=== PATIENT | female | born 1990 | race Caucasian/White ===

== ENCOUNTER → 2018-02-16 | Outpatient (REF) | payer BC | LOC: M SFHCWAGY 13:06 | DX: Z12.4 Encounter for screening for malignant neoplasm of cervix (principal) | CPT/HCPCS: G0123 ==

== ENCOUNTER → 2018-08-18 | Outpatient (REF) | payer BC | LOC: M LAB REF 08:36 | PROVIDERS: ATTEND Physician Assistant | DX: J02.9 Acute pharyngitis, unspecified (principal) ==

== ENCOUNTER → 2019-02-15 | Outpatient (REF) | payer BC | LOC: M SFHCWAGY 09:34 | PROVIDERS: ATTEND Family Medicine | DX: Z12.4 Encounter for screening for malignant neoplasm of cervix (principal) ==

== ENCOUNTER → 2021-03-09 | Outpatient (REF) | payer BC | LOC: M SFHCWAGY 17:18 | PROVIDERS: ATTEND Nurse Practitioner Women's Health | DX: Z12.4 Encounter for screening for malignant neoplasm of cervix (principal) ==

== ENCOUNTER → 2022-06-27 | Outpatient (REF) | payer BC | LOC: M SFHCWAGY 10:31 | PROVIDERS: ATTEND Advanced Practice Midwife | DX: Z12.4 Encounter for screening for malignant neoplasm of cervix (principal); Z77.9 Other contact with and (suspected) exposures hazardous to health | CPT/HCPCS: 87624; G0123 ==

== ENCOUNTER → 2023-02-14 | Outpatient (CLI) | payer BC ==
[2023-02-14 18:07] LABS: HEMATOCRIT 37.7 % (36.0-47.0); HEMOGLOBIN 12.4 g/dl (12.0-15.5); MEAN CORPUSCULAR HEMOGLOBIN 29.8 pg (27.0-33.0); MEAN CORPUSCULAR HGB CONC 32.9 g/dl (32.0-36.5); MEAN CORPUSCULAR VOLUME 90.6 fl (80.0-96.0); PLATELET COUNT, AUTOMATED 221 10^3/uL (150-450); RED BLOOD COUNT 4.16 10^6/uL (4.00-5.40)
[2023-02-14 19:01] LABS: HIV 1&2 SCREEN NEGATIVE (NEGATIVE)
[2023-02-14 20:28] LABS: GC DNA AMPLIFICATION NEGATIVE (NEGATIVE)
[2023-02-15 17:44] LABS: HEPATITIS C VIRUS ABY INDEX 0.06 INDEX (<0.8)
== END ==
LOC: M PLALAB 15:48
PROVIDERS: ATTEND Advanced Practice Midwife
DX: Z34.01 Encounter for supervision of normal first pregnancy, first trimester (principal)

== ENCOUNTER → 2023-05-10 | Outpatient (CLI) | payer BC | LOC: M WHC 15:00 | PROVIDERS: ATTEND Advanced Practice Midwife | DX: Z34.01 Encounter for supervision of normal first pregnancy, first trimester (principal) ==

== ENCOUNTER → 2023-05-16 | Outpatient (CLI) | payer BC | LOC: M PLALAB 15:36 | PROVIDERS: ATTEND Advanced Practice Midwife | DX: Z34.02 Encounter for supervision of normal first pregnancy, second trimester (principal) ==

== ENCOUNTER → 2023-06-16 | Outpatient (CLI) | payer BC ==
[2023-06-16 11:41] LABS: HEMATOCRIT 34.7 % (36.0-47.0); HEMOGLOBIN 11.8 g/dl (12.0-15.5); MEAN CORPUSCULAR HEMOGLOBIN 31.1 pg (27.0-33.0); MEAN CORPUSCULAR VOLUME 91.6 fl (80.0-96.0); PLATELET COUNT, AUTOMATED 182 10^3/uL (150-450); RED BLOOD COUNT 3.79 10^6/uL (4.00-5.40); WHITE BLOOD COUNT 7.9 10^3/uL (4.0-10.0)
[2023-06-16 13:17] LABS: GC DNA AMPLIFICATION NEGATIVE (NEGATIVE)
== END ==
LOC: M PLALAB 07:43
PROVIDERS: ATTEND Advanced Practice Midwife
DX: Z34.02 Encounter for supervision of normal first pregnancy, second trimester (principal)

== ENCOUNTER 2023-08-27 06:18 | Inpatient (IN) | payer BC ==
[2023-08-27] VITALS (100 sets, daily range): BP systolic 77–144; BP diastolic 41–75; O2SAT 94–100
[~2023-08-27] VITALS: Ht 160 cm; Wt 94.7 kg
[2023-08-27] MEDS ORDERED: PRENTAB9 PO (06:30)
[2023-08-27] MEDS ORDERED: TUMS500C PO (06:30)
[2023-08-27] MEDS ORDERED: ONDANSETRON 4MG 2ML VIAL IV PRN ×2 (06:40→10:10)
[2023-08-27] MEDS ORDERED: LR 1,000 ML IV SCH (06:40)
[2023-08-27] MEDS: LR 1,000 ML IV ONE (06:40)
[2023-08-27] MEDS: ONDANSETRON 4MG 2ML VIAL IV ONE (07:06)
[2023-08-27] MEDS: LACTATED RINGER'S 1000 ML IV STA (07:06)
[2023-08-27 07:20] LABS: BASO % 0.2 % (0.0-1.0); EOS % 0.1 % (0.0-3.0); HEMATOCRIT 36.6 % (36.0-47.0); HEMOGLOBIN 12.5 g/dl (12.0-15.5); LYMPH # 0.9 10^3/uL (1.5-5.0); LYMPH % 9.6 % (24.0-44.0); MEAN CORPUSCULAR HEMOGLOBIN 30.2 pg (27.0-33.0); MEAN CORPUSCULAR HGB CONC 34.2 g/dl (32.0-36.5); MEAN CORPUSCULAR VOLUME 88.4 fl (80.0-96.0); MONO # 0.3 10^3/uL (0.0-0.8); MONO % 2.6 % (2.0-8.0); NEUTROPHILS # 8.4 10^3/uL (1.5-8.5); NEUTROPHILS % 87.1 % (36.0-66.0); PLATELET COUNT, AUTOMATED 173 10^3/uL (150-450); RED BLOOD COUNT 4.14 10^6/uL (4.00-5.40); WHITE BLOOD COUNT 9.6 10^3/uL (4.0-10.0)
[2023-08-27] MEDS: AMPICILLIN SOD 2 GM in D5W MINI-BAG PLUS 100 ML IV STA (07:20)
[2023-08-27] MEDS: MAG Sulf (L&D) 4 GM/100 ML 4 GM in IV 1 EA IV ONE (07:53)
[2023-08-27 07:55] LABS: LDH LACTATE DEHYDROGENASE 547 U/L (120-246)
[2023-08-27] MEDS: BETAMETHASONE SOLUSPAN 6MG/ML 5ML VIAL IM SCH (08:05)
[2023-08-27 08:07] LABS: ALBUMIN 3.2 G/DL (3.2-5.2); ALKALINE PHOSPHATASE 111 U/L (46-116); ALT/SGPT 48 U/L (7.0-40); AST/SGOT 69 U/L (<34); BILIRUBIN,TOTAL 0.7 MG/DL (0.3-1.2); BLOOD UREA NITROGEN 10 MG/DL (9-23); CALCIUM LEVEL 9.1 MG/DL (8.5-10.1); CARBON DIOXIDE LEVEL 20 MMOL/L (20-31); CHLORIDE LEVEL 103 MMOL/L (98-107); GLOMERULAR FILTRATION RATE > 60.0 (>60); GLUCOSE, FASTING 120 MG/DL (60-100); POTASSIUM SERUM 5.1 MMOL/L (3.5-5.1); SODIUM LEVEL 138 MMOL/L (136-145); TOTAL PROTEIN 6.6 G/DL (5.7-8.2); URIC ACID 4.9 MG/DL (3.1-7.8)
[2023-08-27] MEDS: MAG Sulf (OBGYN) 20GM/500ML 20,000 MG in IV 1 EA IV SCH (08:17)
[2023-08-27] MEDS ORDERED: HOME MED LIST COMPLETE! XX SCH (08:25)
[2023-08-27 08:31] LABS: HEPATITIS C VIRUS ABY INDEX < 0.02 INDEX (<0.8)
[2023-08-27 08:46] LABS: AMORPHOUS SEDIMENT SMALL (NEGATIVE); APPEARANCE, URINE TURBID (CLEAR); BACTERIA, URINE AUTO NEGATIVE (NEGATIVE); BILIRUBIN, URINE AUTO NEGATIVE (NEGATIVE); BLOOD, URINE BLOOD NEGATIVE (NEGATIVE); COLOR, URINE AMBER (YELLOW); GLUCOSE, URINE (UA) AUTO NEGATIVE (NEGATIVE); KETONE, URINE AUTO 1+ mg/dL (NEGATIVE); LEUKOCYTE ESTERASE, URINE AUTO TRACE (NEGATIVE); MUCUS, URINE SMALL (NEGATIVE); NITRITE, URINE AUTO NEGATIVE (NEGATIVE); PROTEIN, URINE AUTO 2+ mg/dL (NEGATIVE); RBC, URINE AUTO 0 /HPF (0-3); SQUAMOUS EPITHELIAL CELL UR AU 3 /HPF (0-6); UROBILINOGEN, URINE AUTO 0.2 mg/dL (0.0-2.0); WBC, URINE AUTO 0 /HPF (0-3)
[2023-08-27 09:23] LABS: MAGNESIUM LEVEL 1.4 MG/DL (1.8-2.4)
[2023-08-27] MEDS ORDERED: FENTANYL 2MCG/ML ROPIVACAINE 0.2% IN 0.9% NACL 100ML IVBAG As Ordered ONE (09:56)
[2023-08-27] MEDS ORDERED: diphenhydrAMINE 50MG/ML VIAL IV PRN (10:10)
[2023-08-27] MEDS ORDERED: LR 500 ML IV PRN (10:10)
[2023-08-27] MEDS ORDERED: EPIDURAL/PCA KEYS XX PRN ×2 (10:10→11:25)
[2023-08-27] MEDS ORDERED: NALOXONE INJ 0.4MG/1ML VIAL IV PRN (10:10)
[2023-08-27] MEDS: FENTANYL/ROPIVACAINE/NACL BAG 100 ML EPIDURAL SCH (10:37)
[2023-08-27] MEDS: ePHEDrine SULFATE 25 MG/5 ML(5MG/ML) SYRINGE IVP PRN ×2 (10:52→11:30)
[2023-08-27] MEDS: AMPICILLIN SOD 1 GM in D5W MINI-BAG PLUS 50 ML IV SCH (11:15)
[2023-08-27] MEDS: LR 1,000 ML IV SCH ×2 (11:49→14:32)
[2023-08-28] VITALS (15 sets, daily range): BP systolic 93–127; BP diastolic 52–71; O2SAT 97–100
[2023-08-28] MEDS ORDERED: OXYTOCIN 30UNITS IN 0.9% NaCl 500ML IV BAG As Ordered ONE (00:16)
[2023-08-28] MEDS: OXYTOCIN DRIP 30 UNITS in IV 1 EA IV SCH (01:59)
[2023-08-28] MEDS ORDERED: RHO(D) IMMUNE GLOBULIN/MALTOSE 500MCG(2500IU)/2.2ML VIAL (WINRHO) IM SCH (04:15)
[2023-08-28] MEDS ORDERED: DOCUSATE SODIUM 100MG CAPSULE PO PRN (04:15)
[2023-08-28] MEDS ORDERED: OXYTOCIN DRIP 30 UNITS in IV 1 EA IV SCH (04:15)
[2023-08-28] MEDS ORDERED: DIBUCAINE 1% OINTMENT 30GM TOP PRN (04:15)
[2023-08-28] MEDS ORDERED: ACETAMINOPHEN TAB 650MG DOSE (2X325MG) PO PRN (04:15)
[2023-08-28] MEDS ORDERED: METHYLERGONOVINE MALEATE 0.2 MG TAB PO PRN (04:15)
[2023-08-28 04:38] LABS: CORD GAS ABE A -4.4; CORD GAS HCO3 A 20.7 MMOL/L; CORD GAS PCO2 A 38.5 mmHg; CORD GAS PH A 7.349 UNITS; CORD GAS PO2 A 24.7 mmHg; CORD GAS SBC A 20.1 MMOL/L; CORD GAS TCO2 A 21.9 MMOL/L
[2023-08-28 04:39] LABS: CORD GAS ABE V -2.9; CORD GAS HCO3 V 22.7 MMOL/L; CORD GAS O2 SAT V 69.6 %; CORD GAS PCO2 V 42.7 mmHg; CORD GAS PH V 7.344 UNITS; CORD GAS PO2 V 28.8 mmHg; CORD GAS SBC V 21.4 MMOL/L
[2023-08-28] MEDS: PRENATAL VITAMINS CHEWABLE TABLET PO SCH (07:52)
[2023-08-28] MEDS: ACETAMINOPHEN 500 MG TAB PO PRN (18:05)
[2023-08-28] MEDS: IBUPROFEN 800 MG TAB PO PRN (21:30)
[2023-08-29 06:00] VITALS: BP 110/66; O2SAT 98
[2023-08-29 09:15] VITALS: BP 110/66; TEMP 97.4; O2SAT 98
[2023-08-29] MEDS: IBUPROFEN 600MG TAB PO PRN (15:52)
[2023-08-29 18:00] VITALS: BP 123/60; O2SAT 98
[2023-08-30 06:00] VITALS: BP 109/68; O2SAT 98
[2023-08-30] MEDS: MEASLES,MUMPS,RUBELLA VACCINE INJ (MMR-II) SC.IMMUN ONE (09:00)
== END 2023-08-30 17:50 | disposition home or self-care (01) | DRG 560 ==
LOC: M LDO 06:18 → M LDI 08:07 → M OBS 08-28 06:00
PROVIDERS: ADMIT Obstetrics & Gynecology; ATTEND Obstetrics & Gynecology
PROC: 10E0XZZ Delivery of Products of Conception, External Approach (ICD-10-PCS; principal; 2023-08-28)
PROC: 0KQM0ZZ Repair Perineum Muscle, Open Approach (ICD-10-PCS; 2023-08-28)
PROC: 10907ZC Drainage of Amniotic Fluid, Therapeutic from Products of Conception, Via Natural or Artificial Opening (ICD-10-PCS; 2023-08-28)
DX: O60.14X0 Preterm labor third trimester with preterm delivery third trimester, not applicable or unspecified (principal); E86.0 Dehydration; Z3A.35 35 weeks gestation of pregnancy; O21.0 Mild hyperemesis gravidarum; O99.284 Endocrine, nutritional and metabolic diseases complicating childbirth; O70.1 Second degree perineal laceration during delivery; Z37.0 Single live birth

== ENCOUNTER → 2024-11-18 | Outpatient (REF) | payer BC ==
[~2024-11-18] MED LIST: PRENTAB9 PO; TUMS500C PO
== END ==
LOC: M PLALAB 15:02
PROVIDERS: ATTEND Advanced Practice Midwife
DX: Z53.9 Procedure and treatment not carried out, unspecified reason (principal)

== ENCOUNTER → 2024-11-27 | Outpatient (CLI) | payer BC ==
[2024-11-27 17:29] LABS: PLATELET COUNT, AUTOMATED 224 10^3/uL (150-450)
[2024-11-27 18:08] LABS: HIV 1&2 SCREEN NEGATIVE (NEGATIVE)
[2024-11-27 18:16] LABS: HEPATITIS C VIRUS ABY INDEX < 0.02 INDEX (<0.8)
[2024-11-27 18:41] LABS: Trichomonas vaginalis (AMP) NOT DETECTED (NEGATIVE)
[2024-11-27 19:05] LABS: GC DNA AMPLIFICATION NEGATIVE (NEGATIVE)
== END ==
LOC: M PLALAB 14:38
PROVIDERS: ATTEND Advanced Practice Midwife
DX: Z34.81 Encounter for supervision of other normal pregnancy, first trimester (principal)

== ENCOUNTER → 2024-12-17 | Outpatient (REF) | payer BC | LOC: M SFHCWAGY 09:54 | PROVIDERS: ATTEND Advanced Practice Midwife | DX: Z34.92 Encounter for supervision of normal pregnancy, unspecified, second trimester (principal) ==

== ENCOUNTER → 2025-01-17 | Outpatient (CLI) | payer BC | LOC: M WHC 15:09 | PROVIDERS: ATTEND Advanced Practice Midwife | DX: Z34.92 Encounter for supervision of normal pregnancy, unspecified, second trimester (principal); Z3A.19 19 weeks gestation of pregnancy ==

== ENCOUNTER → 2025-02-24 | Outpatient (CLI) | payer BC | LOC: M WHC 14:53 | PROVIDERS: ATTEND Nurse Practitioner Family | DX: Z34.82 Encounter for supervision of other normal pregnancy, second trimester (principal) ==

== ENCOUNTER → 2025-03-17 | Outpatient (CLI) | payer BC | LOC: M WHC 12:20 | PROVIDERS: ATTEND Nurse Practitioner Family | DX: Z34.82 Encounter for supervision of other normal pregnancy, second trimester (principal) ==

== ENCOUNTER 2025-03-18 16:47 | Emergency (ER) | payer BC ==
[~2025-03-18] VITALS: Ht 160 cm; Wt 104.7 kg
[2025-03-18 16:52] VITALS: TEMP 99
[2025-03-18 17:36] LABS: BASO # 0.0 10^3/uL (0.0-0.2); BASO % 0.3 % (0.0-1.0); EOS # 0.1 10^3/uL (0.0-0.5); EOS % 1.5 % (0.0-3.0); LYMPH # 1.7 10^3/uL (1.5-5.0); LYMPH % 20.8 % (24.0-44.0); MONO # 0.5 10^3/uL (0.0-0.8); MONO % 6.4 % (2.0-8.0); NEUTROPHILS # 5.6 10^3/uL (1.5-8.5); NEUTROPHILS % 70.7 % (36.0-66.0); PLATELET COUNT, AUTOMATED 202 10^3/uL (150-450)
[2025-03-18] MEDS: NS 500 ML IV ONE (17:38)
[2025-03-18 17:56] LABS: ALT/SGPT 16 U/L (7.0-40); AST/SGOT 17 U/L (<34); CALCIUM LEVEL 9.3 MG/DL (8.5-10.1); CARBON DIOXIDE LEVEL 25 MMOL/L (20-31); CHLORIDE LEVEL 103 MMOL/L (98-107); CREATININE FOR GFR 0.47 MG/DL (0.55-1.30); GLOMERULAR FILTRATION RATE > 90.0 (>60); POTASSIUM SERUM 3.9 MMOL/L (3.5-5.1); SODIUM LEVEL 138 MMOL/L (136-145)
[2025-03-18 18:03] LABS: INR 0.89
[2025-03-18 18:15] VITALS: BP 117/62; O2SAT 100
== END 2025-03-18 18:51 | disposition admitted as inpatient to this hospital (09) ==
LOC: EDBD 16:47 → M ED 16:47
DX: S00.83XA Contusion of other part of head, initial encounter (principal); Y92.9 Unspecified place or not applicable; Y93.9 Activity, unspecified; Y99.9 Unspecified external cause status; W01.0XXA Fall on same level from slipping, tripping and stumbling without subsequent striking against object, initial encounter; Z3A.27 27 weeks gestation of pregnancy; Z79.810 Long term (current) use of selective estrogen receptor modulators (SERMs)

== ENCOUNTER 2025-03-18 18:45 | Inpatient (IN) | payer BC ==
[~2025-03-18] VITALS: Ht 160 cm; Wt 104.0 kg
[2025-03-18 18:53] VITALS: BP 122/67
[2025-03-18] MEDS: BETAMETHASONE SOLUSPAN 6 MG/ML 5 ML VIAL IM ONE (20:03)
[2025-03-18 20:05] VITALS: BP 130/64
[2025-03-18 22:08] VITALS: BP 122/61
[2025-03-19] VITALS (10 sets, daily range): BP systolic 105–140; BP diastolic 55–74
[2025-03-19 01:38] LABS: PLATELET COUNT, AUTOMATED 186 10^3/uL (150-450)
[2025-03-19 02:01] LABS: INR 0.87
[2025-03-19 08:43] LABS: PLATELET COUNT, AUTOMATED 196 10^3/uL (150-450)
[2025-03-19] MEDS: ACETAMINOPHEN 500 MG TAB PO PRN (15:48)
[2025-03-19 19:53] LABS: PLATELET COUNT, AUTOMATED 196 10^3/uL (150-450)
[2025-03-19] MEDS: BETAMETHASONE SOLUSPAN 6 MG/ML 5 ML VIAL IM ONE (20:08)
[2025-03-20] VITALS (8 sets, daily range): BP systolic 100–131; BP diastolic 47–61
[2025-03-20 07:25] LABS: PLATELET COUNT, AUTOMATED 174 10^3/uL (150-450)
[2025-03-20] MEDS: LR 1,000 ML IV ONE (16:30)
[2025-03-20] MEDS: LR 1,000 ML IV SCH (16:30)
[2025-03-20 20:52] LABS: PLATELET COUNT, AUTOMATED 172 10^3/uL (150-450)
[2025-03-21 05:01] LABS: PLATELET COUNT, AUTOMATED 174 10^3/uL (150-450)
[2025-03-21] MEDS: LR 1,000 ML IV ONE (05:48)
[2025-03-21 06:02] VITALS: BP 100/58
[2025-03-21 09:31] VITALS: BP 140/73
[2025-03-21 11:36] VITALS: BP 140/68
[2025-03-21 17:15] VITALS: BP 124/76
[2025-03-21 20:16] VITALS: BP 93/47
[2025-03-21 22:58] VITALS: BP 90/54
[2025-03-22] VITALS (8 sets, daily range): BP systolic 80–153; BP diastolic 51–97
[2025-03-22] MEDS ORDERED: SLF 3 ML SYR IV PRN (11:10)
[2025-03-22] MEDS: SLF 3 ML SYR IV SCH (18:24)
[2025-03-23 02:11] VITALS: BP 101/55
[2025-03-23 07:38] VITALS: BP 115/69
[2025-03-23 08:45] LABS: PLATELET COUNT, AUTOMATED 192 10^3/uL (150-450)
== END 2025-03-23 11:55 | disposition home or self-care (01) | DRG 566 ==
LOC: M LDO 18:45 → M LDI 03-19 02:47
PROVIDERS: ADMIT Obstetrics & Gynecology; ATTEND Obstetrics & Gynecology
DX: O9A.212 Injury, poisoning and certain other consequences of external causes complicating pregnancy, second trimester (principal); S09.93XA Unspecified injury of face, initial encounter; W10.9XXA Fall (on) (from) unspecified stairs and steps, initial encounter; Y92.9 Unspecified place or not applicable; Y93.9 Activity, unspecified; Y99.8 Other external cause status; Z3A.27 27 weeks gestation of pregnancy

== ENCOUNTER → 2025-03-25 | Outpatient (CLI) | payer BC ==
[2025-03-25 13:55] LABS: PLATELET COUNT, AUTOMATED 209 10^3/uL (150-450)
[2025-03-25 13:57] LABS: GLUCOSE CHALLENGE TEST 1 HOUR 118 MG/DL (LESS THAN 140)
[2025-03-25 14:31] LABS: HIV 1&2 SCREEN NEGATIVE (NEGATIVE)
[2025-03-25 14:38] LABS: HEPATITIS C VIRUS ABY INDEX < 0.02 INDEX (<0.8)
[2025-03-25 15:07] LABS: Trichomonas vaginalis (AMP) NOT DETECTED (NEGATIVE)
[2025-03-25 15:31] LABS: GC DNA AMPLIFICATION NEGATIVE (NEGATIVE)
== END ==
LOC: M PLALAB 09:23
PROVIDERS: ATTEND Specialist
DX: Z34.82 Encounter for supervision of other normal pregnancy, second trimester (principal)

== ENCOUNTER → 2025-04-10 | Outpatient (CLI) | payer BC | LOC: M RAD 09:37 | PROVIDERS: ATTEND Student in an Organized Health Care Education/Training Program | DX: O9A.213 Injury, poisoning and certain other consequences of external causes complicating pregnancy, third trimester (principal); Z3A.30 30 weeks gestation of pregnancy ==

== ENCOUNTER → 2025-04-23 | Outpatient (REF) | payer BC ==
[~2025-04-23] MED LIST changes: +ACET-897 PO
== END ==
LOC: M SFHCWAGY 12:34
PROVIDERS: ATTEND Advanced Practice Midwife
DX: Z34.93 Encounter for supervision of normal pregnancy, unspecified, third trimester (principal); Z3A.36 36 weeks gestation of pregnancy